=== PATIENT | female | born 1975 | race Two or more races ===

== ENCOUNTER 2022-01-22 16:50 | Outpatient (CLI) | payer SELFPAY | END 2022-01-22 23:59 | disposition home or self-care (01) | LOC: LAB SPEC 16:50 | PROVIDERS: ATTEND Pathology Anatomic Pathology & Clinical Pathology | DX: R74.8 Abnormal levels of other serum enzymes (principal) | CPT/HCPCS: 36415; 82330 ==

== ENCOUNTER 2023-04-07 04:26 | Inpatient (IN) | payer MEDICAID, OTHER ==
[~2023-04-07] VITALS: Ht 157.5 cm; Wt 83.6 kg
[2023-04-07] MEDS ORDERED: acetaminophen 1,000mg/100ml IV 100 ML IV STA (05:17)
[2023-04-07] MEDS ORDERED: normal saline 1000ML IV soln IVB ONE (05:20)
[2023-04-07] MEDS ORDERED: ondansetron/PF 4mg/2ml inj IV ONE (05:20)
[2023-04-07 05:32] LABS: BASOPHILS % (AUTO) 0.6 % (0-1); EOSINOPHILS # (AUTO) 0.1 X10'3 (0-0.9); EOSINOPHILS % (AUTO) 2.3 % (0-6); HEMOGLOBIN 13.5 g/dl (12.0-16.0); LYMPHOCYTES # (AUTO) 1.8 X10'3 (1.1-4.8); MEAN CORPUSCULAR HEMOGLOBIN 31.8 PG (27.0-31.0); MEAN CORPUSCULAR HGB CONC 33.8 g/dL (33.0-36.5); MEAN CORPUSCULAR VOLUME 94.3 FL (78-98); MEAN PLATELET VOLUME 11.3 FL (7.4-10.4); MONOCYTES # (AUTO) 0.5 X10'3 (0-0.9); MONOCYTES % (AUTO) 11.8 % (2-12); NEUTROPHILS # (AUTO) 1.5 X10'3 (1.8-7.7); NEUTROPHILS % (AUTO) 39.3 % (42-75); RED BLOOD COUNT 4.24 X10'6 (4.20-5.60); RED CELL DISTRIBUTION WIDTH 13.7 % (11.5-14.5); WHITE BLOOD COUNT 3.9 X10'3 (4.5-11.0)
[2023-04-07 05:47] LABS: ALANINE AMINOTRANSFERASE 83 U/L (12-78); ALBUMIN 3.1 G/DL (3.4-5.0); ALBUMIN/GLOBULIN RATIO 0.8 (1.1-1.5); ALKALINE PHOSPHATASE 269 IU/L (46-116); ANION GAP 9 (8-16); ASPARTATE AMINO TRANSFERASE 67 U/L (10-37); BILIRUBIN,TOTAL 0.7 MG/DL (0.1-1.0); BLOOD UREA NITROGEN 9 MG/DL (7-18); BUN/CREATININE RATIO 13.2 (10.0-20.0); CALCIUM 8.3 MG/DL (8.5-10.1); CHLORIDE 107 MMOL/L (99-107); CREATININE 0.68 MG/DL (0.40-0.90); GLUCOSE 114 MG/DL (70-104); LIPASE 195 U/L (73-393); POTASSIUM 3.8 MMOL/L (3.5-5.1); SODIUM 140 MMOL/L (135-145); TOTAL CARBON DIOXIDE 24.1 MMOL/L (24-32); TOTAL PROTEIN 7.2 G/DL (6.4-8.2); eGFR > 90 ML/MIN
[2023-04-07] MEDS ORDERED: iohexol 300mg/ml 100ml inj. ONE (05:52)
[2023-04-07 06:04] LABS: LARGE PLATELETS FEW; PLATELET COUNT 42 X10'3 (140-440); PLATELET ESTIMATE DECREASED
--- NOTE | 2023-04-07 07:25 | NUR ---
0650 REC'D PT IN POC IN NAD WITH FAMILY AT BS, CC OF RIGHT FLANK PAIN RADIATING TO RLQ AND DOWN RIGHT LEG ABOUT 8/10, POSITIVE NAUSEA, NO V/D, +BOWEL SOUNDS X 4 IV 20GA RAC INTACT AND PATENT, NO OTHER CC
[2023-04-07 07:28] LABS: URINE HCG NEGATIVE (NEG)
[2023-04-07 07:40] LABS: CLARITY,URINE CLEAR (Clear); COLOR,URINE YELLOW (Yellow); GLUCOSE, URINE NEGATIVE (Neg); KETONES,URINE NEGATIVE (Neg); LEUKOCYTE ESTERASE ,URINE NEGATIVE (Neg); NITRITES, URINE NEGATIVE (Neg); OCCULT BLOOD,URINE LARGE (Neg); PH,URINE 6.5 (4.8-8.0); PROTEIN,URINE NEGATIVE (Neg); UROBILINOGEN,URINE 0.2 E.U/dL (0.2-1.0)
[2023-04-07 08:00] LABS: UA COLLECTION TYPE CLN CATCH MIDSTREAM
[2023-04-07 08:01] LABS: WBC,URINE 0-4 /HPF (0-4)
[2023-04-07 08:02] LABS: BACTERIA,URINE 2+ /HPF (Neg); MUCUS STRANDS FEW /LPF (Neg); RBC,URINE 20-50 /HPF (0-2); SQUAMOUS EPITHELIAL CELL,UR MANY /LPF (FEW)
[2023-04-07] MEDS ORDERED: piperacillin/tazo 3.375gm/50ml 50 ML IV ONE (09:25)
[2023-04-07] MEDS ORDERED: bisacodyl 10mg suppository rectal RC PRN (09:40)
[2023-04-07] MEDS ORDERED: magnesium hydroxide 30ml (MOM) UD suspension PO PRN (09:40)
[2023-04-07] MEDS ORDERED: diphenhydrAMINE 25mg capsule PO PRN (09:40)
[2023-04-07] MEDS ORDERED: diphenhydrAMINE 50 mg/ml inj IV PRN ×2 (09:40→13:20)
[2023-04-07] MEDS ORDERED: HYDROcodone/acetaminophen 5mg/325mg tablet PO PRN (09:40)
[2023-04-07] MEDS ORDERED: HYDROmorphone/PF 0.2 MG/ML SYRINGE IV PRN (09:40)
[2023-04-07] MEDS ORDERED: magnesium Cl slow-release 64mg tablet PO PRN (09:40)
[2023-04-07] MEDS ORDERED: metoclopramide 5 mg/ml inj IV PRN (09:40)
[2023-04-07] MEDS ORDERED: potassium Cl 40MEQ/1/2NS 520ml 520 ML IV PRN (09:40)
[2023-04-07] MEDS ORDERED: magnesium 2GM in 50ml NS 50 ML IV PRN (09:40)
[2023-04-07] MEDS ORDERED: mag hydrox/Alum hydrox/simeth 30ml oral suspension PO PRN (09:40)
[2023-04-07] MEDS ORDERED: acetaminophen 325mg tablet PO PRN ×2 (09:40)
[2023-04-07] MEDS ORDERED: ondansetron 4mg rapidly disintigrating tab PO PRN (09:40)
[2023-04-07] MEDS ORDERED: HYDROmorphone inj. 0.5 MG/0.5 ML DISP.SYRIN IV PRN (09:40)
[2023-04-07] MEDS ORDERED: magnesium 4gm in 100ml NS 100 ML IV PRN (09:40)
[2023-04-07] MEDS ORDERED: potassium Cl 20 mEq SR tablet PO PRN ×2 (09:40)
[2023-04-07] MEDS ORDERED: ondansetron/PF 4mg/2ml inj IV PRN (09:40)
[2023-04-07] MEDS ORDERED: acetaminophen 650mg rectal suppository RC PRN (09:40)
[2023-04-07] MEDS: normal saline 1000ml 1,000 ML IV SCH (10:17)
[2023-04-07] MEDS ORDERED: furosemide 20 MG/2 ML vial IV ONE (11:15)
[2023-04-07 12:05] VITALS: BP 113/65
[2023-04-07 12:20] VITALS: BP 115/62
--- NOTE | 2023-04-07 13:00 | NUR ---
PT C/O HIVES TO LOWER LEGS AND BACK DURING PLATELETS. INFUSION STOPPED. MD CALLED. LAB CALLED. NEW ORDERS RECEIVED. VITAL STABLE. NO RESP DISTRESS
[2023-04-07] MEDS ORDERED: methylPREDNISolone sod succ/PF 40mg inj. IV STA (13:16)
[2023-04-07] MEDS ORDERED: acetaminophen 325mg tablet PO ONE (13:20)
[2023-04-07] MEDS: methylPREDNISolone sod succ/PF 40mg inj. IV SCH ×2 (13:25→22:14)
[2023-04-07] MEDS: diphenhydrAMINE 50 mg/ml inj IV SCH ×2 (13:53→22:14)
[2023-04-07 17:01] LABS: BASOPHILS % (AUTO) 0.3 % (0-1); EOSINOPHILS % (AUTO) 0.5 % (0-6); HEMATOCRIT 42.6 % (35.0-45.0); HEMOGLOBIN 14.5 g/dl (12.0-16.0); LYMPHOCYTES # (AUTO) 0.7 X10'3 (1.1-4.8); LYMPHOCYTES % (AUTO) 23.4 % (21-51); MEAN CORPUSCULAR HEMOGLOBIN 32.2 PG (27.0-31.0); MEAN CORPUSCULAR HGB CONC 33.9 g/dL (33.0-36.5); MEAN CORPUSCULAR VOLUME 94.8 FL (78-98); MEAN PLATELET VOLUME 11.2 FL (7.4-10.4); MONOCYTES # (AUTO) 0.1 X10'3 (0-0.9); MONOCYTES % (AUTO) 3.7 % (2-12); NEUTROPHILS # (AUTO) 2.2 X10'3 (1.8-7.7); NEUTROPHILS % (AUTO) 72.1 % (42-75); PLATELET COUNT 65 X10'3 (140-440); RED CELL DISTRIBUTION WIDTH 13.7 % (11.5-14.5)
[2023-04-07] MEDS: piperacillin/tazo 3.375gm/50ml 50 ML IV SCH (17:06)
[2023-04-07 17:11] LABS: ALANINE AMINOTRANSFERASE 93 U/L (12-78); ALBUMIN 3.3 G/DL (3.4-5.0); ALBUMIN/GLOBULIN RATIO 0.8 (1.1-1.5); ALKALINE PHOSPHATASE 227 IU/L (46-116); ANION GAP 8 (8-16); ASPARTATE AMINO TRANSFERASE 79 U/L (10-37); BILIRUBIN,TOTAL 1.1 MG/DL (0.1-1.0); BLOOD UREA NITROGEN 7 MG/DL (7-18); BUN/CREATININE RATIO 9.5 (10.0-20.0); CALCIUM 8.4 MG/DL (8.5-10.1); CHLORIDE 108 MMOL/L (99-107); CREATININE 0.74 MG/DL (0.40-0.90); GLUCOSE 122 MG/DL (70-104); POTASSIUM 3.9 MMOL/L (3.5-5.1); SODIUM 140 MMOL/L (135-145); TOTAL CARBON DIOXIDE 23.6 MMOL/L (24-32); TOTAL PROTEIN 7.3 G/DL (6.4-8.2); eGFR 85 ML/MIN
--- NOTE | 2023-04-07 17:33 | NUR ---
PAGED REGARDING NEW PLT RESULT. LAB HAS CROSS MATCHED PLT IF MD WANTS TO TRY TO INFUSE AGAIN
[2023-04-07 18:04] LABS: PLATELET ESTIMATE DECREASED; TOTAL CELLS COUNTED 100
[2023-04-07 18:05] LABS: LARGE PLATELETS FEW
[2023-04-07 19:28] VITALS: BP 122/64
[2023-04-07] MEDS: K and/or MAG REPLACEMENT MC SCH (20:00)
[2023-04-07] MEDS ORDERED: temazepam 15mg capsule PO PRN (21:00)
[2023-04-07 22:00] VITALS: BP 117/65
[2023-04-07 22:11] VITALS: BP 121/65
[2023-04-07] MEDS: furosemide 20 MG/2 ML vial IV SCH (22:14)
[2023-04-07] MEDS: docusate sod 100mg capsule PO SCH (22:15)
[2023-04-08] VITALS (26 sets, daily range): BP systolic 86–161; BP diastolic 40–95
[2023-04-08] MEDS: piperacillin/tazo 3.375gm/50ml 50 ML IV SCH ×4 (02:46→23:44)
[2023-04-08 03:03] LABS: BASOPHILS % (AUTO) 0.2 % (0-1); EOSINOPHILS % (AUTO) 0 % (0-6); HEMATOCRIT 39.1 % (35.0-45.0); HEMOGLOBIN 13.3 g/dl (12.0-16.0); LYMPHOCYTES # (AUTO) 0.6 X10'3 (1.1-4.8); LYMPHOCYTES % (AUTO) 12.3 % (21-51); MEAN CORPUSCULAR VOLUME 94.3 FL (78-98); MEAN PLATELET VOLUME 9.9 FL (7.4-10.4); MONOCYTES # (AUTO) 0.1 X10'3 (0-0.9); MONOCYTES % (AUTO) 1.2 % (2-12); NEUTROPHILS # (AUTO) 4.5 X10'3 (1.8-7.7); NEUTROPHILS % (AUTO) 86.3 % (42-75); PLATELET COUNT 88 X10'3 (140-440); RED BLOOD COUNT 4.15 X10'6 (4.20-5.60); RED CELL DISTRIBUTION WIDTH 13.4 % (11.5-14.5); WHITE BLOOD COUNT 5.2 X10'3 (4.5-11.0)
[2023-04-08] MEDS: diphenhydrAMINE 50 mg/ml inj IV SCH ×2 (04:36→08:13)
[2023-04-08] MEDS: methylPREDNISolone sod succ/PF 40mg inj. IV SCH ×4 (04:37→20:02)
--- NOTE | 2023-04-08 06:30 | NUR ---
Problems reprioritized. Patient report given, questions answered & plan of care reviewed with ALEX DEAL.
[2023-04-08 07:01] LABS: BASOPHILS % (AUTO) 0.1 % (0-1); EOSINOPHILS % (AUTO) 0 % (0-6); HEMATOCRIT 39.6 % (35.0-45.0); HEMOGLOBIN 13.5 g/dl (12.0-16.0); LYMPHOCYTES # (AUTO) 0.7 X10'3 (1.1-4.8); LYMPHOCYTES % (AUTO) 11.5 % (21-51); MEAN CORPUSCULAR HEMOGLOBIN 32.4 PG (27.0-31.0); MEAN CORPUSCULAR HGB CONC 34.1 g/dL (33.0-36.5); MEAN CORPUSCULAR VOLUME 94.9 FL (78-98); MEAN PLATELET VOLUME 10.4 FL (7.4-10.4); MONOCYTES # (AUTO) 0.1 X10'3 (0-0.9); MONOCYTES % (AUTO) 1.9 % (2-12); NEUTROPHILS # (AUTO) 5.3 X10'3 (1.8-7.7); NEUTROPHILS % (AUTO) 86.5 % (42-75); PLATELET COUNT 88 X10'3 (140-440); RED BLOOD COUNT 4.17 X10'6 (4.20-5.60); RED CELL DISTRIBUTION WIDTH 13.7 % (11.5-14.5); WHITE BLOOD COUNT 6.2 X10'3 (4.5-11.0)
[2023-04-08 07:26] LABS: ALANINE AMINOTRANSFERASE 81 U/L (12-78); ALBUMIN 2.9 G/DL (3.4-5.0); ALBUMIN/GLOBULIN RATIO 0.8 (1.1-1.5); ALKALINE PHOSPHATASE 184 IU/L (46-116); ANION GAP 10 (8-16); ASPARTATE AMINO TRANSFERASE 63 U/L (10-37); BILIRUBIN,TOTAL 0.9 MG/DL (0.1-1.0); BLOOD UREA NITROGEN 12 MG/DL (7-18); BUN/CREATININE RATIO 17.4 (10.0-20.0); CALCIUM 8.2 MG/DL (8.5-10.1); CHLORIDE 107 MMOL/L (99-107); CREATININE 0.69 MG/DL (0.40-0.90); GLUCOSE 142 MG/DL (70-104); MAGNESIUM 1.9 MG/DL (1.5-2.4); POTASSIUM 3.6 MMOL/L (3.5-5.1); SODIUM 141 MMOL/L (135-145); TOTAL PROTEIN 6.7 G/DL (6.4-8.2); eGFR > 90 ML/MIN
[2023-04-08] MEDS: K and/or MAG REPLACEMENT MC SCH ×2 (08:00→19:58)
[2023-04-08] MEDS: docusate sod 100mg capsule PO SCH ×2 (08:00→20:02)
[2023-04-08] MEDS: furosemide 20 MG/2 ML vial IV SCH ×2 (08:13→20:02)
[2023-04-08] MEDS ORDERED: proCHLORperazine 10 MG/2 ml inj IV PRN ×2 (11:15→11:20)
[2023-04-08] MEDS ORDERED: morphine 4 MG/ML inj SYRINge IV PRN ×2 (11:15→11:20)
[2023-04-08] MEDS ORDERED: ringers solution, lacted 1,000 ML IV SCH ×2 (11:15→11:20)
[2023-04-08] MEDS ORDERED: morphine 2 MG/ML inj. syringe IV PRN ×2 (11:15→11:20)
[2023-04-08] MEDS ORDERED: ondansetron/PF 4mg/2ml inj IV PRN ×2 (11:15→11:20)
[2023-04-08] MEDS ORDERED: meperidine/PF 25mg/ml syringe IV PRN ×6 (11:15→11:20)
[2023-04-08] MEDS ORDERED: DESMOPRESSIN IV STA (12:36)
[2023-04-08] MEDS ORDERED: NORMAL SALINE IV STA (12:36)
[2023-04-08] MEDS ORDERED: BUPIVAcaine/PF 2.5 mg/ml (0.25%) 30ml vial ONE (12:44)
[2023-04-08] MEDS ORDERED: desmopressin inj. 24 MCG in normal saline 100ml IV soln 94 ML IV STA (12:49)
[2023-04-08 13:00] LABS: HEMATOCRIT 39.3 % (35.0-45.0); HEMOGLOBIN 13.4 g/dl (12.0-16.0); MEAN CORPUSCULAR HEMOGLOBIN 32.1 PG (27.0-31.0); MEAN CORPUSCULAR VOLUME 94.5 FL (78-98); MEAN PLATELET VOLUME 9.5 FL (7.4-10.4); PLATELET COUNT 125 X10'3 (140-440); RED BLOOD COUNT 4.16 X10'6 (4.20-5.60); RED CELL DISTRIBUTION WIDTH 13.8 % (11.5-14.5); WHITE BLOOD COUNT 8.3 X10'3 (4.5-11.0)
[2023-04-08] MEDS ORDERED: sevoflurane 250ml liquid IH ONE (13:05)
[2023-04-08] MEDS ORDERED: ondansetron/PF 4mg/2ml inj ONE (13:05)
[2023-04-08] MEDS ORDERED: dexamethasone sod phosphate 10mg/ml inj ONE (13:05)
[2023-04-08] MEDS ORDERED: fentaNYL/PF 50MCG/1 ML 2ML syringe ONE (13:15)
[2023-04-08] MEDS ORDERED: midazolam 1 mg/ML 2ml injection ONE (13:15)
[2023-04-08] MEDS ORDERED: propofol inj 20 ML IV ONE (13:17)
[2023-04-08] MEDS ORDERED: LIDOcaine 2% (20mg/ml) 5ml vial ONE (13:17)
[2023-04-08] MEDS ORDERED: rocuronium 10mg/ml inj IV ONE (13:25)
[2023-04-08] MEDS ORDERED: BUPIVAcaine/PF 2.5 mg/ml (0.25%) 30ml vial IJ ONE (13:33)
[2023-04-08] MEDS ORDERED: acetaminophen 1,000mg/100ml IV 100 ML IV ONE (14:06)
[2023-04-08] MEDS ORDERED: meperidine/PF 25mg/ml syringe ONE (14:06)
[2023-04-08] MEDS ORDERED: neostigmine methylsulfate 1 MG/ML 10ml vial ONE (14:20)
[2023-04-08] MEDS ORDERED: glycopyrrolate 0.2mg/ml inj ONE (14:20)
--- NOTE | 2023-04-08 14:30 | NUR ---
Received from OR via , accompanied by Anesthesiologist and report given by Anesthesiolgist. PATIENT A&OX4, DENIES PAIN, V/S WNL, SCD ON , PIV 20G RUE, DERMABONDED LAPS SITES CLOSED CDI TO ABDOMEN.
[2023-04-08] MEDS: normal saline 1000ml 1,000 ML IV SCH ×2 (15:20→23:44)
--- NOTE | 2023-04-08 15:20 | NUR ---
Report called to receiving nurse SAY JOHNSON. Transferred via HOSPITAL BED BACK TO ROOM 401. BED IN LOW LOCKED POSITION WITH CALL LIGHT IN REACH. PT HOOKES UP TO BESIDE MONITORS. Belongings WERE LEFT IN PT ROOM 401. Special Issues communicated to receiving nurse. Addendum: 04/08/23 at 1525 by Verena Norton RN RN Amended: Links added.
[2023-04-08] MEDS: diphenhydrAMINE 25mg capsule PO SCH ×2 (15:22→20:02)
[2023-04-08] MEDS: HYDROcodone/acetaminophen 10/325mg tab PO PRN (15:50)
--- NOTE | 2023-04-08 18:00 | NUR ---
Patient in room ORTHO 4015. I have received report from ALEX DEAL and had the opportunity to ask questions and assume patient care.
[2023-04-09] MEDS: diphenhydrAMINE 25mg capsule PO SCH ×2 (01:37→08:59)
[2023-04-09] MEDS: methylPREDNISolone sod succ/PF 40mg inj. IV SCH ×2 (01:38→08:20)
[2023-04-09 02:08] VITALS: BP 102/60
[2023-04-09 05:57] LABS: HEMOGLOBIN 12.5 g/dl (12.0-16.0); PLATELET COUNT 95 X10'3 (140-440)
[2023-04-09 05:59] LABS: BASOPHILS % (AUTO) 0 % (0-1); EOSINOPHILS % (AUTO) 0 % (0-6); LYMPHOCYTES # (AUTO) 0.8 X10'3 (1.1-4.8); LYMPHOCYTES % (AUTO) 10.4 % (21-51); MEAN CORPUSCULAR HEMOGLOBIN 32.1 PG (27.0-31.0); MEAN CORPUSCULAR HGB CONC 33.8 g/dL (33.0-36.5); MEAN PLATELET VOLUME 9.6 FL (7.4-10.4); MONOCYTES # (AUTO) 0.4 X10'3 (0-0.9); MONOCYTES % (AUTO) 5.1 % (2-12); NEUTROPHILS # (AUTO) 6.1 X10'3 (1.8-7.7); NEUTROPHILS % (AUTO) 84.5 % (42-75); RED BLOOD COUNT 3.89 X10'6 (4.20-5.60); RED CELL DISTRIBUTION WIDTH 13.9 % (11.5-14.5); WHITE BLOOD COUNT 7.3 X10'3 (4.5-11.0)
[2023-04-09 06:10] LABS: ALANINE AMINOTRANSFERASE 122 U/L (12-78); ALBUMIN 2.8 G/DL (3.4-5.0); ALBUMIN/GLOBULIN RATIO 0.8 (1.1-1.5); ALKALINE PHOSPHATASE 148 IU/L (46-116); ANION GAP 7 (8-16); ASPARTATE AMINO TRANSFERASE 103 U/L (10-37); BILIRUBIN,TOTAL 0.7 MG/DL (0.1-1.0); BLOOD UREA NITROGEN 17 MG/DL (7-18); BUN/CREATININE RATIO 22.7 (10.0-20.0); CALCIUM 7.5 MG/DL (8.5-10.1); CHLORIDE 108 MMOL/L (99-107); CREATININE 0.75 MG/DL (0.40-0.90); GLUCOSE 167 MG/DL (70-104); MAGNESIUM 2.1 MG/DL (1.5-2.4); POTASSIUM 3.7 MMOL/L (3.5-5.1); SODIUM 141 MMOL/L (135-145); TOTAL CARBON DIOXIDE 26.2 MMOL/L (24-32); TOTAL PROTEIN 6.4 G/DL (6.4-8.2); eGFR 84 ML/MIN
--- NOTE | 2023-04-09 06:31 | NUR ---
Problems reprioritized. Patient report given, questions answered & plan of care reviewed with JOSEPH RAYMUNDO.
[2023-04-09] MEDS: K and/or MAG REPLACEMENT MC SCH (08:00)
[2023-04-09] MEDS: piperacillin/tazo 3.375gm/50ml 50 ML IV SCH (08:20)
[2023-04-09] MEDS: HYDROcodone/acetaminophen 10/325mg tab PO PRN (08:27)
[2023-04-09] MEDS: docusate sod 100mg capsule PO SCH (08:59)
[2023-04-09 10:00] VITALS: BP 102/62
[2023-04-09] MEDS: furosemide 20 MG/2 ML vial IV SCH (10:22)
[2023-04-09 10:25] VITALS: BP 102/62
--- NOTE | 2023-04-09 11:16 | NUR ---
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
[2023-04-09] MEDS ORDERED: magnesium hydroxide 30ml (MOM) UD suspension PO ONE (12:05)
[2023-04-09] MEDS ORDERED: HYDR-3965 PO (12:11)
== END 2023-04-09 13:40 | disposition home or self-care (01) | DRG 263 ==
LOC: ER 04:27 → ED HOLD 09:49 → ORTHO 4S 19:40
PROVIDERS: ADMIT Family Medicine; ATTEND Family Medicine
PROC: 30233R1 Transfusion of Nonautologous Platelets into Peripheral Vein, Percutaneous Approach (ICD-10-PCS; 2023-04-07)
PROC: BW211ZZ Computerized Tomography (CT Scan) of Abdomen and Pelvis using Low Osmolar Contrast (ICD-10-PCS; 2023-04-07)
PROC: 0FB14ZX Excision of Right Lobe Liver, Percutaneous Endoscopic Approach, Diagnostic (ICD-10-PCS; 2023-04-08)
PROC: 0FT44ZZ Resection of Gallbladder, Percutaneous Endoscopic Approach (ICD-10-PCS; principal; 2023-04-08 13:05)
DX: K80.00 Calculus of gallbladder with acute cholecystitis without obstruction (principal); D69.6 Thrombocytopenia, unspecified; K74.60 Unspecified cirrhosis of liver; K76.0 Fatty (change of) liver, not elsewhere classified; E66.9 Obesity, unspecified; Y84.8 Other medical procedures as the cause of abnormal reaction of the patient, or of later complication, without mention of misadventure at the time of the procedure; Y92.230 Patient room in hospital as the place of occurrence of the external cause; T80.89XA Other complications following infusion, transfusion and therapeutic injection, initial encounter; L50.0 Allergic urticaria; N92.0 Excessive and frequent menstruation with regular cycle; M79.89 Other specified soft tissue disorders; R16.0 Hepatomegaly, not elsewhere classified; R60.0 Localized edema; Z68.33 Body mass index [BMI] 33.0-33.9, adult
CPT/HCPCS: 36415; 36430; 74177; 76700; 80053; 81001; 81025; 82948; 83690; 83735; 85007; 85008; 85025; 85027; 85384; 85610; 86078; 86885; 86900; 86901; 87040; 87081; 93005; 99285; A4215; A4615; A4618; A7000; G0378; J0131; J1100; J1200; J1940; J2175; J2250; J2405; J2543; J2597; J2704; J2710; J2920; J3010; J3490; J7030; J7040; J7120; P9035; Q0163; Q9967

== ENCOUNTER → 2024-03-04 | Outpatient (CLI) | payer MEDICAID | END | disposition home or self-care (01) | LOC: RAD 09:00 | PROVIDERS: ATTEND Nurse Practitioner | DX: K76.0 Fatty (change of) liver, not elsewhere classified (principal); D69.6 Thrombocytopenia, unspecified; K76.6 Portal hypertension; R16.1 Splenomegaly, not elsewhere classified; Z90.49 Acquired absence of other specified parts of digestive tract | CPT/HCPCS: 76700 ==